=== PATIENT | male | born 1945 | race Caucasian/White ===

== ENCOUNTER 2024-01-20 10:21 | Day surgery (SDC) | payer OTHER ==
[~2024-01-20] VITALS: Ht 172.7 cm; Wt 68.4 kg
[~2024-01-20 10:21] MED LIST: Balanced Salt Epinephrine Irrigation Solution 500 mL IR SCH; Lidocaine HCl/Pf 1% 5 ML VIAL XX SCH; Moxifloxacin HCL 0.5 MG/0.1 ML 0.4MLSYR RIGHTEYE SCH; NS 500 ML IV ONE; PHENYLEPHRINE\\TROPICAMIDE\\TETRACAINE OPHTHALMIC DILATING SOLN RIGHTEYE PRN; Povidone-Iodine 450 DROP/30 ML Solution ONE; Povidone-Iodine 450 DROP/30 ML Solution RIGHTEYE SCH; Tetracaine HCl/Pf 0.5% Opth Soln 4 ml ONE
[2024-01-20] MEDS ORDERED: Midazolam HCl 1MG / ML 2ML Vial ONE (11:08)
[2024-01-20] MEDS ORDERED: SILDENAFIL CITR50 MG PO (11:08)
[2024-01-20] MEDS ORDERED: NS 500 ML IV ONE (11:17)
--- NOTE | 2024-01-20 11:17 | NUR ---
01/20/24 1117 Nina Gottlieb CALL LIGHT WITHIN REACH. TETRACAINE IN RIGHT EYE AT 1109 AND PLEDGETT IN AT 1110
[2024-01-20 12:12] VITALS: BP 111/81
--- NOTE | 2024-01-20 12:36 | NUR ---
01/20/24 1236 KIARA GANDHI VERY KIND AND SOFT SPOKEN MAN. PLEASURE TO CARE FOR HIM.
== END 2024-01-20 12:30 | disposition home or self-care (01) ==
LOC: ORSCSDS 10:21
PROVIDERS: Student in an Organized Health Care Education/Training Program
PROC: 08RJ3JZ Replacement of Right Lens with Synthetic Substitute, Percutaneous Approach (ICD-10-PCS; principal; 2024-01-20 12:00)
DX: H25.813 Combined forms of age-related cataract, bilateral (principal); Z79.899 Other long term (current) drug therapy; H35.89 Other specified retinal disorders
CPT/HCPCS: J2250; J7040; V2632

== ENCOUNTER 2024-01-27 10:22 | Day surgery (SDC) | payer OTHER ==
[~2024-01-27] VITALS: Ht 172.7 cm; Wt 68.4 kg
[~2024-01-27 10:22] MED LIST changes: +Moxifloxacin HCL 0.5 MG/0.1 ML 0.4MLSYR LEFTEYE SCH; -Moxifloxacin HCL 0.5 MG/0.1 ML 0.4MLSYR RIGHTEYE SCH; +PHENYLEPHRINE\\TROPICAMIDE\\TETRACAINE OPHTHALMIC DILATING SOLN LEFTEYE PRN; -PHENYLEPHRINE\\TROPICAMIDE\\TETRACAINE OPHTHALMIC DILATING SOLN RIGHTEYE PRN; +Povidone-Iodine 450 DROP/30 ML Solution LEFTEYE SCH; -Povidone-Iodine 450 DROP/30 ML Solution RIGHTEYE SCH; +SILDENAFIL CITR50 MG PO
[2024-01-27] MEDS ORDERED: FentaNYL Citrate 50 MCG/ML 2 ML Injection ONE (11:22)
--- NOTE | 2024-01-27 11:23 | NUR ---
DIFFICULTY WAKING FOLLOWING PROSTATE PROCEDURE
[2024-01-27] MEDS ORDERED: NS 500 ML IV ONE (11:36)
--- NOTE | 2024-01-27 11:37 | NUR ---
01/27/24 1137 Paty Quintanilla 1125 PLEDGET AT 1124
[2024-01-27] MEDS ORDERED: Midazolam HCl 1MG / ML 2ML Vial ONE (12:09)
[2024-01-27 12:45] VITALS: BP 125/76
== END 2024-01-27 12:46 | disposition home or self-care (01) ==
LOC: ORSCSDS 10:22
PROVIDERS: Student in an Organized Health Care Education/Training Program
PROC: 08RK3JZ Replacement of Left Lens with Synthetic Substitute, Percutaneous Approach (ICD-10-PCS; principal; 2024-01-27 12:00)
DX: H25.812 Combined forms of age-related cataract, left eye (principal); Z96.1 Presence of intraocular lens; G47.33 Obstructive sleep apnea (adult) (pediatric)
CPT/HCPCS: J2250; J3010; J7040; V2632